=== PATIENT | male | born 1935 | race Caucasian/White ===

== ENCOUNTER 2020-09-15 14:42 | Emergency (ER) | payer MEDICARE, OTHER ==
[~2020-09-15] VITALS: Ht 175.3 cm; Wt 72.7 kg
[~2020-09-15 14:42] MED LIST: AMBIEN 5MG TABLE5 MG PO; APRESOLINE50 MG PO; ARICEPT10 MG PO; ASPIRIN 81M81 MG/TA2 PO; ASPIRIN E.C. 8181 MG PO; CEPHALEXIN500 M1 PO; CLARITIN 1010 MG/TAB PO; CORDARONE200 MG/TAB PO; COREG 25MG25 MG/TAB PO; ELIQUIS 5MG PO; FLONASE NASAL S16 GM NS; FLONASEALLERGY NS; FOLIC ACID 11 MG/TA1 PO; HCTZ 25MG TAB25 MG PO; IRON325 M1 PO; LIPITOR 10MG10 MG PO; LIPITOR 40MG TA40 MG PO; MULTI VITAMINS1 TAB PO; MYSOLINE 5050 MG/TAB PO; NAMENDA 10MG TA10 MG PO; NAPROXEN 3375 MG/TAB PO; OMEGA-31000 MG PO; PLENDIL10 MG PO; PREDNISONE20 MG PO; PRINIVIL40 MG PO; PROAIR HFA0.09 MG/AC IH; SINEMET 25/101 UDTAB PO; SPIRIVA RE2.5 MCG/Ac IH; SYNTHROID0.05 MG/TA PO; TRANDATE 200MG200 MG PO; VITAMIN B11000 MCG/M IM
[2020-09-15 16:26] LABS: BASO % 0.4 % (0.0-2.0); EOS # 0.3 (0.0-0.7); EOS % 3.7 % (0-4.0); GRAN # 5.8 (1.4-6.5); LYMPH # 0.3 (1.2-3.4); LYMPH % 4.8 % (20.0-51.0); MEAN CELL VOLUME 93 fl (80.0-100.0); MEAN CORPUSCULAR HGB CONC 30 g/dl (33.0-37.0); MEAN PLATELET VOLUME 10.4 fl (7.4-10.4); MONO # 0.5 (0.1-0.6); MONO % 7.5 % (1.7-9.3); PLATELET COUNT 285 K/mm3 (130-400); RED BLOOD COUNT 3.04 M/mm3 (4.20-5.60); REDCELL DISTRIBUTION WIDTH-CV 14.4 % (11.5-14.5)
[2020-09-15 16:28] LABS: HEMATOCRIT 28.3 % (42.0-52.0); HEMOGLOBIN 8.5 g/dl (13.5-18.0); MEAN CORPUSCULAR HEMOGLOBIN 28 pg (27.0-31.0)
[2020-09-15 16:31] LABS: INR 1.9 (0.8-3.0); PROTHROMBIN TIME 20.9 SECONDS (9.7-12.8)
[2020-09-15 16:40] LABS: ALBUMIN 3.6 gm/dL (3.5-5.0); BILIRUBIN,TOTAL 0.6 mg/dL (0.0-1.0); CREATININE, serum 1.22 (0.66-1.25); POTASSIUM 4.3 mmol/L (3.4-5.0); TOTAL PROTEIN 6.9 gm/dL (6.4-8.2)
[2020-09-15 19:51] LABS: COLLECTION METHOD CLEAN CATCH
[2020-09-15 20:04] LABS: MUCOUS Present /lpf; PH 7 (5-8); SQUAMOUS EPITHELIAL None Seen /hpf; URINE APPEARANCE Clear; URINE BACTERIA None Seen /hpf; URINE BILIRUBIN Negative (NEGATIVE); URINE BLOOD Negative (NEGATIVE); URINE COLOR Yellow; URINE GLUCOSE Negative (NEGATIVE); URINE KETONE Negative (NEGATIVE); URINE LEUKOCYTE ESTERASE Negative (NEGATIVE); URINE NITRATE Negative (NEGATIVE); URINE PROTEIN(semi-quant) Negative (NEGATIVE); URINE RBC 0-2 /hpf; URINE UROBILINOGEN Negative (NEGATIVE)
[2020-09-15 20:57] VITALS: BP 127/64; PULSE 76; TEMP 98
== END 2020-09-15 21:10 | disposition short-term general hospital (02) ==
LOC: COL.ER 14:42
PROVIDERS: Emergency Medicine
DX: R91.8 Other nonspecific abnormal finding of lung field (principal); R06.02 Shortness of breath; D64.9 Anemia, unspecified; I48.91 Unspecified atrial fibrillation; I25.10 Atherosclerotic heart disease of native coronary artery without angina pectoris; I10 Essential (primary) hypertension; J44.9 Chronic obstructive pulmonary disease, unspecified; G20 Parkinson's disease; F02.80 Dementia in other diseases classified elsewhere, unspecified severity, without behavioral disturbance, psychotic disturbance, mood disturbance, and anxiety; N18.9 Chronic kidney disease, unspecified; Z86.73 Personal history of transient ischemic attack (TIA), and cerebral infarction without residual deficits; Z95.818 Presence of other cardiac implants and grafts; Z95.1 Presence of aortocoronary bypass graft; Z85.89 Personal history of malignant neoplasm of other organs and systems; Z79.01 Long term (current) use of anticoagulants; Z20.828 Contact with and (suspected) exposure to other viral communicable diseases; Z79.52 Long term (current) use of systemic steroids; Z79.82 Long term (current) use of aspirin
CPT/HCPCS: Q9967